=== PATIENT | female | born 1940 | race Caucasian/White ===

== ENCOUNTER → 2017-06-11 | Outpatient (CLI) | payer MEDICARE ==
[~2017-06-11] MED LIST: BONIVA3 MG/3 ML; CALCIUM 600 +1 EAC3 PO; CALCIUM PO; CARAFATE1 G PO; CERTAGEN PO; FORTEO750 MCG/3 INJ; LORTAB 7.5-5001 TAB PO; MIRALAX17 GM DOB; MULTIVITAMIN1 UDCAP PO; OMEPRAZOLE40 MG PO; PREDNISONE; PREDNISONE PO; PRILOSEC PO; PROTONIX PO
--- NOTE | ~2017-06-11 | MY29 ---
[facility] A Service of [facility] RADIOLOGY TEXT RESULTS PATIENT: ANGIE RIVERA LOCATION: [facility] : 40 UNIT #: [id number] AGE: [address]: Arsh Rosenberg MD SEX: F ORDER DR: [id number] [facility] [place], [place] [address] [id number] O MR#: [id number] Acc #: [id number] NAME: ANGIE OCAMPO : 1940 SEX: F STUDY DATE/TIME: 06/11/2017 15:58 UNIT: [facility] ROOM: STUDY DESCRIPTION: MY CHYNA SCREENING W/ CAD BILAT Attending Physician: Arsh Rosenberg M.D. Ordering Physician: Arsh Rosenberg M.D. Primary Care Physician: Arsh Rosenberg M.D. MEDICAL IMAGING REPORT This report is preliminary unless electronic signature is present EXAM Bilateral digital screening mammogram with CAD DATE: 06/11/2017 HISTORY No personal or family history of breast cancer or current complaints. COMPARISON Bilateral screening mammogram 04/19/2016, 07/07/2013. FINDINGS CC and MLO views were obtained of each breast utilizing digital technique and reviewed with an FDA-approved CAD device. Extremely dense fibroglandular tissue is demonstrated bilaterally, greatest in the anterior two-thirds of each breast. This pattern appears unchanged from prior examination. No new or suspicious dominant nodule, architectural distortion or clustered microcalcification is identified. IMPRESSION BIRADS 2. Benign findings. Routine bilateral screening mammogram is recommended in 1 year. Patients over the age of 40 are entered into a reminder system with target due date for the next mammogram. A result letter will also be sent to the patient. BIRADS: 2 Benign finding Dictated by... [facility] A Service [facility] RADIOLOGY TEXT RESULTS PATIENT: ANGIE RIVERA LOCATION: [facility] : 40 UNIT #: [id number] AGE: [address]: Arsh Rosenberg MD SEX: F ORDER DR: Ana Henry M.D. THIS IS AN ELECTRONICALLY VERIFIED REPORT Ana Henry M.D. at 06/12/2017 8:56 AM ASHOK/marietta TD: 06/12/2017 03:11 JOB #: [id number] MEDICAL IMAGING REPORT Page 1 of 1 COPY
== END | disposition home or self-care (01) ==
LOC: CWCC 15:30
DX: Z12.31 Encounter for screening mammogram for malignant neoplasm of breast (principal)
CPT/HCPCS: G0202